=== PATIENT | female | born 1995 | race Caucasian/White ===

== ENCOUNTER 2023-03-28 19:30 | Emergency (ER) | payer OTHER ==
[2023-03-28] MEDS ORDERED: HYDROmorphone 1 MG/ML 1 ML SYRINGE IM STA (19:56)
[2023-03-28] MEDS ORDERED: KETOROLAC 15 MG/ML 1 ML VIAL IM STA (19:56)
--- NOTE | 2023-03-28 19:56 | ED ---
General Adult HPI - General Chief complaint: Back Pain/Injury Stated complaint: Back Pain Time Seen by Provider: 03/28/23 19:48 Source: patient, RN notes reviewed Mode of arrival: ambulatory Limitations: no limitations - History of Present Illness Initial comments: Patient is a pleasant 28-year-old female coming to the emergency department with concerns with low back pain. Onset of symptoms was around 3-4 months ago. No trauma. Patient does have scoliosis. Patient does not have a history of chronic back problems. No reported incontinence or retention of bowel or bladder. No weakness. Patient states discomfort does occasionally travel down her right leg. No abdominal pain. Patient has subcutaneous control and denies possible - Related Data Previous Rx's Medication Instructions Recorded Cyclobenzaprine [Flexeril] 10 mg PO TID PRN #12 tablet 03/28/23 methylPREDNISolone Dose Pack 4 mg PO DIRECTED #21 tab 03/28/23 [Medrol Dose Pack] Allergies Allergy/AdvReac Type Severity Reaction Status Date / Time aloe vera Allergy Unknown Verified 03/28/23 19:41 Review of Systems ROS Statement: Those systems with pertinent positive or pertinent negative responses have been documented in the HPI. ROS Other: All systems not noted in ROS Statement are negative. Constitutional: Denies: fever Eyes: Denies: eye pain ENT: Denies: ear pain Respiratory: Denies: cough, dyspnea Cardiovascular: Denies: chest pain Gastrointestinal: Denies: abdominal pain Genitourinary: Denies: dysuria Musculoskeletal: Reports: as per HPI, back pain Skin: Denies: rash Neurological: Denies: weakness Past Medical History Additional Past Medical History / Comment(s): ovaries History of Any Multi-Drug Resistant Organisms: None Reported Past Psychological History: No Psychological Hx Reported Smoking Status: Former smoker Past Alcohol Use History: Rare Past Drug Use History: None Reported General Exam Limitations: no limitations General appearance: alert, in no apparent distress Head exam: Present: normocephalic Eye exam: Present: normal appearance Neck exam: Present: normal inspection Respiratory exam: Present: normal lung sounds bilaterally Cardiovascular Exam: Present: regular rate, normal rhythm Expanded Peripheral pulses: 2+: Posterior Tibialis (R), Posterior Tibialis (L) GI/Abdominal exam: Present: soft. Absent: tenderness, pulsatile mass Extremities exam: Present: normal inspection Back exam: Present: tenderness (Mild tenderness mid lumbar region), other (Scoliosis) Neurological exam: Present: alert. Absent: motor sensory deficit Expanded Motor strength exam: RLE: 5, LLE: 5 Psychiatric exam: Present: normal affect, normal mood Skin exam: Present: normal color Course Vital Signs 03/28/23 19:42 Temperature 98.6 F Pulse Rate 71 Respiratory 16 Rate Blood Pressure 95/61 O2 Sat by Pulse 97 Oximetry Medical Decision Making - Medical Decision Making Was pt. sent in by a medical professional or institution (THERESE Pedersen, VASCULAR SONOGRAPHER, urgent care, hospital, or custodial...) When possible be specific @ -No Did you speak to anyone other than the patient for history (EMS, parent, family, police, friend...)? What history was obtained from this source @ -No Did you review nursing and triage notes (agree or disagree)? Why? @ -I reviewed and agree with nursing and triage notes Were old charts reviewed (outside hosp., previous admission, EMS record, old EKG, old radiological studies, urgent care reports/EKG's, custodial records)? Report findings @ -No old charts were reviewed Differential Diagnosis (chest pain, altered mental status, abdominal pain women, abdominal pain men, vaginal bleeding, weakness, fever, dyspnea, syncope, headache, dizziness, GI bleed, back pain, seizure, CVA, palpatations, mental health)? @ -not applicable EKG interpreted by me (3pts min.). @ -As above X-rays interpreted by me (1pt min.). @ -Lumbar x-ray shows scoliosis. No fracture. Mild degenerative disc CT interpreted by me (1pt min.). @ -None done U/S interpreted by me (1pt. min.). @ -None done What testing was considered but not performed or refused? (CT, X-rays, U/S, labs)? Why? @ -None What meds were considered but not given or refused? Why? @ -None Did you discuss the management of the patient with other professionals (professionals i.e. THERESE Pedersen, VASCULAR SONOGRAPHER, lab, RT, psych nurse, high school social studies teacher, dye automation operator, teacher, airfield services officer, director case management)? Give summary @ -No Was smoking cessation discussed for >3mins.? @ -No Was critical care preformed (if so, how long)? @ -No Were there social determinants of health that impacted care today? How? (Homelessness, low income, unemployed, alcoholism, drug addiction, transportation, low edu. Level, literacy, decrease access to med. care, alf, rehab)? @ -No Was there de-escalation of care discussed even if they declined (Discuss DNR or withdrawal of care, Hospice)? DNR status @ -No What co-morbidities impacted this encounter? (DM, HTN, Smoking, COPD, CAD, Cancer, CVA, ARF, Chemo, Hep., AIDS, mental health diagnosis, sleep apnea, morbid obesity)? @ -Patient has history of scoliosis Was patient admitted / discharged? Hospital course, mention meds given and route, prescriptions, significant lab abnormalities, going to OR and other perti nent info. @ -Patient will be provided medication and prescription. Patient updated on x- rays and recommended follow-up primary care physician and consider physical therapy Undiagnosed new problem with uncertain prognosis? @ -No Drug Therapy requiring intensive monitoring for toxicity (Heparin, Nitro, Insulin, Cardizem)? @ -No Were any procedures done? @ -No Diagnosis/symptom? @ -Low back pain Acute, or Chronic, or Acute on Chronic? @ -Acute Uncomplicated (without systemic symptoms) or Complicated (systemic symptoms)? @ -default Side effects of treatment? @ -No Exacerbation, Progression, or Severe Exacerbation? @ -No Poses a threat to life or bodily function? How? (Chest pain, [place], [place], pneumonia, PE, COPD, DKA, ARF, appy, cholecystitis, CVA, Diverticulitis, Homicidal, Suicidal, threat to staff... and all critical care pts) @ -No Disposition Clinical Impression: Low back pain Disposition: HOME SELF-CARE Condition: Stable Instructions (If sedation given, give patient instructions): Acute Low Back Pain (ED) Additional Instructions: Please do follow-up with primary care physician in the next couple days for recheck, numbers provided. Consider physical therapy. Prescriptions have been sent to pharmacy. Return for increased pain, weakness, loss of sensation, loss of control of bowel or bladder function, worsening symptoms or other concerns. Prescriptions: Cyclobenzaprine [Flexeril] 10 mg PO TID PRN #12 tablet PRN Reason: Pain methylPREDNISolone Dose Pack [Medrol Dose Pack] 4 mg PO DIRECTED #21 tab Is patient prescribed a controlled substance at d/c from ED?: No Referrals: Parish Dai MD [STAFF PHYSICIAN] - 1-2 days Dominik Carney MD [STAFF PHYSICIAN] - 1-2 days Time of Disposition: 20:21
--- NOTE | 2023-03-28 20:08 | XR ---
EXAMINATION TYPE: XR lumbar spine 2 or 3V DATE OF EXAM: 03/28/2023 8:02 PM INDICATION: Patient age:Female; 28 years old; Reason for study: lbp; COMPARISON: None TECHNIQUE: Frontal, lateral and coned in L5-S1 lateral views of the spine. FINDINGS: No evidence of any acute osseous pathology. No evidence of loss of vertebral body height i s seen. There is scoliotic alignment apex left L1. No significant degeneration changes throughout the spine. IMPRESSION: 1. No acute fracture. 2. Mild multilevel disc degeneration.
[2023-03-28 20:38] VITALS: BP 119/70; PULSE 72; RESP 18; TEMP 98.1
== END 2023-03-28 20:38 | disposition home or self-care (01) ==
LOC: EC 19:30
DX: M54.50 Low back pain, unspecified (principal); Z87.891 Personal history of nicotine dependence; Z91.048 Other nonmedicinal substance allergy status
CPT/HCPCS: 72100; 99283; 96372 ×2; J1170; J1885

== ENCOUNTER 2023-03-31 19:54 | Emergency (ER) | payer OTHER ==
[2023-03-31 21:03] VITALS: RESP 18
[2023-03-31] MEDS ORDERED: ORPHENADRINE 30 MG/ML 2 ML VIAL IM STA (21:06)
[2023-03-31] MEDS ORDERED: DEXAMETHASONE SOD PHOSPHATE 10 MG/ML 1 ML VIAL IM STA (21:06)
[2023-03-31] MEDS ORDERED: KETOROLAC 15 MG/ML 1 ML VIAL IM STA (21:06)
--- NOTE | 2023-03-31 21:59 | ED ---
Back Pain HPI - General Chief Complaint: Back Pain/Injury Stated Complaint: LEG NUMBNESS-RECHECK Time Seen by Provider: 03/31/23 20:52 Source: patient Limitations: no limitations - History of Present Illness Initial Comments: Patient is a 28-year-old female presenting with chief complaint of back pain. Patient was here on 03/28 with similar complaints, she was given a prescription for muscle relaxers and steroids. Patient states that she worked today, she owns a cleaning company, and believes this may have worsened her pain. She forgot to bring her muscle relaxers to work and notes that pain and numbness shooting down the legs. No loss of bowel or bladder control or saddle paresthesia. No new injury or trauma. No abdominal pain, fever, chills. No dysuria or hematuria. - Related Data Home Medications Medication Instructions Recorded Confirmed methylPREDNISolone Dose Pack See Taper PO DIRECTED 03/31/23 03/31/23 [Medrol Dose Pack] Previous Rx's Medication Instructions Recorded Cyclobenzaprine [Flexeril] 10 mg PO TID PRN #12 tablet 03/28/23 Allergies Allergy/AdvReac Type Severity Reaction Status Date / Time aloe vera Allergy Unknown Verified 03/31/23 20:35 Review of Systems ROS Statement: Those systems with pertinent positive or pertinent negative responses have been documented in the HPI. ROS Other: All systems not noted in ROS Statement are negative. Past Medical History Additional Past Medical History / Comment(s): ovaries, narrowing of spine, disk issues. History of Any Multi-Drug Resistant Organisms: None Reported Past Surgical History: No Surgical Hx Reported Past Psychological History: No Psychological Hx Reported Smoking Status: Former smoker Past Alcohol Use History: Rare Past Drug Use History: Marijuana General Exam Limitations: no limitations General appearance: alert, in no apparent distress Head exam: Present: atraumatic, normocephalic, normal inspection Eye exam: Present: normal appearance, EOMI. Absent: scleral icterus, periorbital swelling Neck exam: Present: normal inspection, full ROM Back exam: Present: normal inspection, paraspinal tenderness Neurological exam: Present: alert, oriented X3, CN II-XII intact Psychiatric exam: Present: normal affect, normal mood Skin exam: Present: warm, dry, intact, normal color. Absent: rash Course Vital Signs 03/31/23 03/31/23 03/31/23 20:31 20:34 22:11 Temperature 98.5 F 97.6 F 97.2 F L Pulse Rate 64 60 62 Respiratory 15 18 18 Rate Blood Pressure 108/76 93/61 96/63 O2 Sat by Pulse 99 97 97 Oximetry Medical Decision Making - Medical Decision Making Was pt. sent in by a medical professional or institution (, THERESE, RAILROAD DISPATCHER, urgent care, hospital, or correction...) When possible be specific @ -No Did you speak to anyone other than the patient for history (EMS, parent, family, police, friend...)? What history was obtained from this source @ -No Did you review nursing and triage notes (agree or disagree)? Why? @ -I reviewed and agree with nursing and triage notes Were old charts reviewed (outside hosp., previous admission, EMS record, old EKG, old radiological studies, urgent care reports/EKG's, correction records)? Report findings @ -No old charts were reviewed Differential Diagnosis (chest pain, altered mental status, abdominal pain women, abdominal pain men, vaginal bleeding, weakness, fever, dyspnea, syncope, headache, dizziness, GI bleed, back pain, seizure, CVA, palpatations, mental health, musculoskeletal)? @ - MDM Differential Back Pain: Strain, zoster, cauda equina syndrome, epidural abscess, vertebral osteomyelitis, discitis, fracture, subluxation, disc herniation, DJD, spinal stenosis, dissection, AAA, pancreatitis, peptic ulcer disease, pyelonephritis, kidney stone this is not meant to be an all-inclusive list. EKG interpreted by me (3pts min.). @ -As above X-rays interpreted by me (1pt min.). @ -None done CT interpreted by me (1pt min.). @ -None done U/S interpreted by me (1pt. min.). @ -None done What testing was considered but not performed or refused? (CT, X-rays, U/S, labs)? Why? @ -None What meds were considered but not given or refused? Why? @ -None Did you discuss the management of the patient with other professionals (professionals i.e. THERESE Pedersen, RAILROAD DISPATCHER, lab, RT, psych nurse, social service technician, consultant teacher, teacher, unarmed security officer, cyanide case hardener)? Give summary @ -No Was smoking cessation discussed for >3mins.? @ -No Was critical care preformed (if so, how long)? @ -No Were there social determinants of health that impacted care today? How? (Homelessness, low income, unemployed, alcoholism, drug addiction, transportation, low edu. Level, literacy, decrease access to med. care, alf, rehab)? @ -No Was there de-escalation of care discussed even if they declined (Discuss DNR or withdrawal of care, Hospice)? DNR status @ -No What co-morbidities impacted this encounter? (DM, HTN, Smoking, COPD, CAD, Cancer, CVA, ARF, Chemo, Hep., AIDS, mental health diagnosis, sleep apnea, morbid obesity)? @ -None Was patient admitted / discharged? Hospital course, mention meds given and route, prescriptions, significant lab abnormalities, going to OR and other pertinent info. @ -Discharge. Patient is a 28-year-old female presenting for reevaluation of back pain. Pain is worse with range of motion. No dysuria, hematuria, fever, chills. 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 Physical examination there is paraspinal muscle tenderness. No red flag symptoms. On reassessment after Toradol, Norflex, Decadron she reports improvement in her pain. She is instructed to continue with home medications and alternate Motrin and Tylenol as needed. Advised [id number] lidocaine patches as well. Provided the patient with suggestions for her PCP as she states she is new to the area. Follow-up with PCP. Report back to ER with any new or worsening symptoms. Discussed return parameters and answered all questions. Patient conveyed verbal understanding and agreed to the plan. I discussed this case in detail with my attending Dr. Whittaker Undiagnosed new problem with uncertain prognosis? @ -No Drug Therapy requiring intensive monitoring for toxicity (Heparin, Nitro, Insulin, Cardizem)? @ -No Were any procedures done? @ -No Diagnosis/symptom? @ -Low back pain Acute, or Chronic, or Acute on Chronic? @ -Acute Uncomplicated (without systemic symptoms) or Complicated (systemic symptoms)? @ -Uncomplicated Side effects of treatment? @ -No Exacerbation, Progression, or Severe Exacerbation? @ -No Poses a threat to life or bodily function? How? (Chest pain, [place], [place], pneumonia, PE, COPD, DKA, ARF, appy, cholecystitis, CVA, Diverticulitis, Homicidal, Suicidal, threat to staff... and all critical care pts) @ -No Disposition Clinical Impression: Low back pain Disposition: HOME SELF-CARE Condition: Good Instructions (If sedation given, give patient instructions): Acute Low Back Pain (ED) Additional Instructions: Follow-up with PCP, some suggestions have been provided for you. Report back to ER with any new or worsening symptoms. Continue taking medications as prescribed. Alternate Motrin and Tylenol for pain control. [id number] lidocaine patches may be helpful with alleviating symptoms. Is patient prescribed a controlled substance at d/c from ED?: No Referrals: None,Stated [Primary Care Provider] - 1-2 days Zena Garcia MD [STAFF PHYSICIAN] - 1-2 days Lisset Jackson MD [REFERRING] - 1-2 days Time of Disposition: 21:58
[2023-03-31] MEDS ORDERED: LIDOCAINE 5% PATCH TOPICAL STA (22:00)
[2023-03-31 22:12] VITALS: BP 96/63; PULSE 62; TEMP 97.2
== END 2023-03-31 22:12 | disposition home or self-care (01) ==
LOC: EC 19:54
DX: M54.50 Low back pain, unspecified (principal); F12.90 Cannabis use, unspecified, uncomplicated; Z88.8 Allergy status to other drugs, medicaments and biological substances; Z87.891 Personal history of nicotine dependence
CPT/HCPCS: 99283; 96372 ×3; J1100; J2360; J1885

== ENCOUNTER 2023-05-19 20:19 | Emergency (ER) | payer OTHER ==
--- NOTE | 2023-05-19 22:01 | ED ---
ENT HPI - General Chief complaint: Dental/Oral Stated complaint: Tooth Ache Time Seen by Provider: 05/19/23 21:51 Source: patient Mode of arrival: ambulatory Limitations: no limitations - History of Present Illness Initial comments: 28-year-old female presents to the ED with chief complaint of dental pain. Patient states that this is been ongoing for a while and she has follow-up with an oral surgeon on 06/06/23. Has been taking Tylenol and ibuprofen with minimal relief of the pain. Denies chest pain or shortness of breath. No other complaints. - Related Data Home Medications Medication Instructions Recorded Confirmed methylPREDNISolone Dose Pack See Taper PO DIRECTED 03/31/23 03/31/23 [Medrol Dose Pack] Previous Rx's Medication Instructions Recorded Cyclobenzaprine [Flexeril] 10 mg PO TID PRN #12 tablet 03/28/23 Amoxic-Pot Clav 875-125Mg 1 tab PO Q12HR 7 Days #14 tab 05/19/23 [Augmentin 875-125] Lidocaine Viscous [Xylocaine 5 ml PO TID 5 Days #50 ml 05/19/23 Viscous 2%] Mag Hydrox/Al Hydrox/Simeth 5 ml PO TID #50 ml 05/19/23 [Maalox] diphenhydrAMINE [Benadryl] 5 ml PO TID #50 ml 05/19/23 Allergies Allergy/AdvReac Type Severity Reaction Status Date / Time aloe vera Allergy Unknown Verified 05/19/23 21:16 Review of Systems ROS Statement: Those systems with pertinent positive or pertinent negative responses have been documented in the HPI. ROS Other: All systems not noted in ROS Statement are negative. Past Medical History Additional Past Medical History / Comment(s): ovaries, narrowing of spine, disk issues. History of Any Multi-Drug Resistant Organisms: None Reported Past Surgical History: No Surgical Hx Reported Past Psychological History: No Psychological Hx Reported Smoking Status: Vaper Past Alcohol Use History: Rare Past Drug Use History: Marijuana General Exam Limitations: no limitations Head exam: Present: atraumatic, normocephalic Eye exam: Present: normal appearance ENT exam: Present: other (Poor dentition with multiple dental cavities. Cracked first molar on the lower left no surrounding abscess.) Respiratory exam: Present: normal lung sounds bilaterally Cardiovascular Exam: Present: regular rate, normal rhythm GI/Abdominal exam: Present: soft Neurological exam: Present: alert, oriented X3 Skin exam: Present: warm, dry Course Vital Signs 05/19/23 21:16 Temperature 98 F Pulse Rate 62 Respiratory 18 Rate Blood Pressure 95/58 O2 Sat by Pulse 98 Oximetry Medical Decision Making - Medical Decision Making Was pt. sent in by a medical professional or institution (THERESE Pedersen, LUBRICATION TECHNICIAN, urgent care, hospital, or half-way...) When possible be specific @ -No Did you speak to anyone other than the patient for history (EMS, parent, family, police, friend...)? What history was obtained from this source @ -No Did you review nursing and triage notes (agree or disagree)? Why? @ -I reviewed and agree with nursing and triage notes Were old charts reviewed (outside hosp., previous admission, EMS record, old EKG, old radiological studies, urgent care reports/EKG's, half-way records)? Report findings @ -No old charts were reviewed Differential Diagnosis (chest pain, altered mental status, abdominal pain women, abdominal pain men, vaginal bleeding, weakness, fever, dyspnea, syncope, headache, dizziness, GI bleed, back pain, seizure, CVA, palpatations, mental health, musculoskeletal)? @ -Gaurang angina, ANUG, apical/periapical abscess. This is not meant to be an all-inclusive list. EKG interpreted by me (3pts min.). @ -None X-rays interpreted by me (1pt min.). @ -None done CT interpreted by me (1pt min.). @ -None done U/S interpreted by me (1pt. min.). @ -None done What testing was considered but not performed or refused? (CT, X-rays, U/S, labs)? Why? @ -None What meds were considered but not given or refused? Why? @ -None Did you discuss the management of the patient with other professionals (professionals i.e. THERESE Pedersen, LUBRICATION TECHNICIAN, lab, RT, psych nurse, executive secretary social welfare, occupational health and safety adviser, teacher, security flex utility officer, outpatient case manager)? Give summary @ -No Was smoking cessation discussed for >3mins.? @ -No Was critical care preformed (if so, how long)? @ -No Were there social determinants of health that impacted care today? How? (Homelessness, low income, unemployed, alcoholism, drug addiction, transportation, low edu. Level, literacy, decrease access to med. care, retirement, rehab)? @ -No Was there de-escalation of care discussed even if they declined (Discuss DNR or withdrawal of care, Hospice)? DNR status @ -No What co-morbidities impacted this encounter? (DM, HTN, Smoking, COPD, CAD, Cancer, CVA, ARF, Chemo, Hep., AIDS, mental health diagnosis, sleep apnea, morbid obesity)? @ -None Was patient admitted / discharged? Hospital course, mention meds given and route, prescriptions, significant lab abnormalities, going to OR and other pertinent info. @ -Discharge. Patient provided prescription for Augmentin and "magic mouthwash". Advised follow up with oral surgeon as scheduled. Discussed return precautions patient verbalized agreement. Undiagnosed new problem with uncertain prognosis? @ -No Drug Therapy requiring intensive monitoring for toxicity (Heparin, Nitro, Insulin, Cardizem)? @ -No Were any procedures done? @ -No Diagnosis/symptom? @ -Dental pain Acute, or Chronic, or Acute on Chronic? @ -Acute on chronic Uncomplicated (without systemic symptoms) or Complicated (systemic symptoms)? @ -Uncomplicated Side effects of treatment? @ -No Exacerbation, Progression, or Severe Exacerbation? @ -No Poses a threat to life or bodily function? How? (Chest pain, [place], [place], pneumonia, PE, COPD, DKA, ARF, appy, cholecystitis, CVA, Diverticulitis, Homicidal, Suicidal, threat to staff... and all critical care pts) @ -No Disposition Clinical Impression: Pain, dental Disposition: HOME SELF-CARE Condition: Good Instructions (If sedation given, give patient instructions): Toothache (ED) Additional Instructions: Please return to the Emergency Department if symptoms worsen or any other concerns. Prescriptions: Amoxic-Pot Clav 875-125Mg [Augmentin 875-125] 1 tab PO Q12HR 7 Days #14 tab diphenhydrAMINE [Benadryl] 5 ml PO TID #50 ml Mag Hydrox/Al Hydrox/Simeth [Maalox] 5 ml PO TID #50 ml Lidocaine Viscous [Xylocaine Viscous 2%] 5 ml PO TID 5 Days #50 ml Is patient prescribed a controlled substance at d/c from ED?: No Referrals: None,Stated [Primary Care Provider] - 1-2 days Time of Disposition: 22:05
[2023-05-19 22:16] VITALS: BP 123/70; PULSE 69; RESP 16; TEMP 98.3
== END 2023-05-19 22:16 | disposition home or self-care (01) ==
LOC: EC 20:19
DX: K02.9 Dental caries, unspecified (principal); K00.7 Teething syndrome; F17.290 Nicotine dependence, other tobacco product, uncomplicated; F12.90 Cannabis use, unspecified, uncomplicated; Z91.09 Other allergy status, other than to drugs and biological substances
CPT/HCPCS: 99282

== ENCOUNTER 2024-11-07 19:23 | Emergency (ER) | payer OTHER ==
[2024-11-07 19:26] VITALS: TEMP 98.7
--- NOTE | 2024-11-07 19:53 | ED ---
Nausea/Vomiting/Diarrhea HPI - General Chief complaint: Nausea/Vomiting/Diarrhea Stated complaint: abd pain Time Seen by Provider: 11/07/24 19:25 Source: patient, family, RN notes reviewed Mode of arrival: ambulatory Limitations: no limitations - History of Present Illness Initial comments: 29-year-old female presents emergency department chief complaint of nausea vomiting back pain. Patient states that she been vomiting throughout the day no significant diarrhea or any bowel movement today. Patient states that she was arm still hurts she injured her back she states she already has a known back issue and states that she has degenerative disc disease. Patient states she sees a specialist currently. She states that she has been incontinent of urine today. She denies any bowel incontinence denies any prior urinary retention denies any lower extremity weakness or paresthesias. Patient states she has no localized abdominal pain she states she was seen at [facility] did have CT of her spine showing some abnormalities. Patient states that she was advised to go to the nearest hospital for an MRI for concern of cauda equina. - Related Data Home Medications Medication Instructions Recorded Confirmed methylPREDNISolone Dose Pack See Taper PO DIRECTED 03/31/23 03/31/23 [Medrol Dose Pack] Previous Rx's Medication Instructions Recorded Cyclobenzaprine [Flexeril] 10 mg PO TID PRN #12 tablet 03/28/23 Amoxic-Pot Clav 875-125Mg 1 tab PO Q12HR 7 Days #14 tab 05/19/23 [Augmentin 875-125] Lidocaine Viscous [Xylocaine 5 ml PO TID 5 Days #50 ml 05/19/23 Viscous 2%] Mag Hydrox/Al Hydrox/Simeth 5 ml PO TID #50 ml 05/19/23 [Maalox] diphenhydrAMINE [Benadryl] 5 ml PO TID #50 ml 05/19/23 Allergies Allergy/AdvReac Type Severity Reaction Status Date / Time aloe vera Allergy Unknown Verified 11/07/24 19:26 Review of Systems ROS Statement: Those systems with pertinent positive or pertinent negative responses have been documented in the HPI. ROS Other: All systems not noted in ROS Statement are negative. Past Medical History Additional Past Medical History / Comment(s): ovaries, narrowing of spine, disk issues. History of Any Multi-Drug Resistant Organisms: None Reported Past Surgical History: No Surgical Hx Reported Past Psychological History: No Psychological Hx Reported Smoking Status: Vaper Past Alcohol Use History: Rare Past Drug Use History: Marijuana General Exam Limitations: no limitations General appearance: alert, in no apparent distress Head exam: Present: atraumatic, normocephalic, normal inspection Eye exam: Present: normal appearance, PERRL, EOMI. Absent: scleral icterus, conjunctival injection, periorbital swelling ENT exam: Present: normal exam, mucous membranes moist Neck exam: Present: normal inspection, full ROM. Absent: tenderness, mening ismus, lymphadenopathy Respiratory exam: Present: normal lung sounds bilaterally. Absent: respiratory distress, wheezes, rales, rhonchi, stridor Cardiovascular Exam: Present: regular rate, normal rhythm, normal heart sounds. Absent: systolic murmur, diastolic murmur, rubs, gallop, clicks GI/Abdominal exam: Present: soft, normal bowel sounds. Absent: distended, tenderness, guarding, rebound, rigid Back exam: Present: vertebral tenderness. Absent: full ROM, paraspinal tenderness Neurological exam: Present: alert, oriented X3, CN II-XII intact, reflexes normal. Absent: motor sensory deficit Skin exam: Present: warm, dry, intact, normal color. Absent: rash Course Vital Signs 11/07/24 19:24 Temperature 98.7 F Pulse Rate 70 Respiratory 18 Rate Blood Pressure 104/68 O2 Sat by Pulse 98 Oximetry Medical Decision Making - Medical Decision Making Was pt. sent in by a medical professional or institution (THERESE Pedersen, [employer], urgent care, hospital, or intermediate...) When possible be specific @ -No Did you speak to anyone other than the patient for history (EMS, parent, family, police, friend...)? What history was obtained from this source @ -No Did you review nursing and triage notes (agree or disagree)? Why? @ -I reviewed and agree with nursing and triage notes Were old charts reviewed (outside hosp., previous admission, EMS record, old EKG, old radiological studies, urgent care reports/EKG's, intermediate records)? Report findings @ -No old charts were reviewed Differential Diagnosis (chest pain, altered mental status, abdominal pain women, abdominal pain men, vaginal bleeding, weakness, fever, dyspnea, syncope, headache, dizziness, GI bleed, back pain, seizure, CVA, palpatations, mental health, musculoskeletal)? @ -Differential Back Pain: Strain, zoster, cauda equina syndrome, epidural abscess, vertebral osteomyelitis, discitis, fracture, subluxation, disc herniation, DJD, spinal stenosis, dissection, AAA, pancreatitis, peptic ulcer disease, pyelonephritis, kidney stone, this is not meant to be an all-inclusive list. EKG interpreted by me (3pts min.). @ -None X-rays interpreted by me (1pt min.). @ -None done CT interpreted by me (1pt min.). @ -None done U/S interpreted by me (1pt. min.). @ -None done What testing was considered but not performed or refused? (CT, X-rays, U/S, labs)? Why? @ -None What meds were considered but not given or refused? Why? @ -None Did you discuss the management of the patient with other professionals (professionals i.e. DrJosselyn, PA, [employer], lab, RT, psych nurse, psychotherapist social worker, corporate administrative assistant, teacher, tactical/mobile watch officer, housing case manager)? Give summary @ -I did discuss the case with Dr. Munoz on-call for orthopedics recommends patient to be transferred for MRI capability and Ortho/neuro surgery evaluation as we do not have coverage. I did discuss case with Emma Singh, Dr Wilkinson, Dr Cevallos. Who accept the patient for transfer for further evaluation possible MRI. Was smoking cessation discussed for >3mins.? @ -No Was critical care preformed (if so, how long)? @ -No Were there social determinants of health that impacted care today? How? (Homelessness, low income, unemployed, alcoholism, drug addiction, transportation, low edu. Level, literacy, decrease access to med. care, [facility], rehab)? @ -No Was there de-escalation of care discussed even if they declined (Discuss DNR or withdrawal of care, Hospice)? DNR status @ -No What co-morbidities impacted this encounter? (DM, HTN, Smoking, COPD, CAD, Cancer, CVA, ARF, Chemo, Hep., AIDS, mental health diagnosis, sleep apnea, morbid obesity)? @ -None Was patient admitted / discharged? Hospital course, mention meds given and route, prescriptions, significant lab abnormalities, going to OR and other pertinent info. @ -Patient is transferred to [facility] for further evaluation patient refuses transfer via EMS will drive private vehicle patient is sent with CT from [facility] I only have current results do not have disc. Undiagnosed new problem with uncertain prognosis? @ -No Drug Therapy requiring intensive monitoring for toxicity (Heparin, Nitro, Insulin, Cardizem)? @ -No Were any procedures done? @ -No Diagnosis/symptom? @ -Back pain, urinary continence, rule out cauda equina Acute, or Chronic, or Acute on Chronic? @ -Acute Uncomplicated (without systemic symptoms) or Complicated (systemic symptoms)? @ -Complicated Side effects of treatment? @ -No Exacerbation, Progression, or Severe Exacerbation? @ -No Poses a threat to life or bodily function? How? (Chest pain, [place], [place], pneumonia, PE, COPD, DKA, ARF, appy, cholecystitis, CVA, Diverticulitis, Homicidal, Suicidal, threat to staff... and all critical care pts) @ -Yes low likelihood, cauda equina Disposition Clinical Impression: Back pain, Urinary incontinence Disposition: OTHER INSTITUTION NOT DEFINED Condition: Poor Referrals: None,Stated [Primary Care Provider] - 1-2 days Time of Disposition: 21:22 - Out of Hospital Transfer - Req. Specs Out of Hospital Transfer - Requested Specifics: Other Emergency Center ([facility])
[2024-11-07] MEDS: ONDANSETRON ODT 4 MG TAB PO STA (20:33)
[2024-11-07 21:41] VITALS: BP 108/62; PULSE 71; RESP 15
== END 2024-11-07 21:41 | disposition other institution (70) ==
LOC: EC 19:23
DX: M54.9 Dorsalgia, unspecified (principal); R32 Unspecified urinary incontinence; F17.290 Nicotine dependence, other tobacco product, uncomplicated; Z91.048 Other nonmedicinal substance allergy status
CPT/HCPCS: 99284